=== PATIENT | male | born 1970 | race American Indian/Alaskan Native ===

== ENCOUNTER 2019-10-07 19:22 | Emergency (ER) | payer OTHER ==
[2019-10-07] MEDS ORDERED: ASPIRIN 325 MG TAB PO ONE (19:33)
[2019-10-07 20:02] LABS: Hematocrit 42.4 % (35.5-45.6); Hemoglobin 13.8 gm/dl (11.8-15.2); Mean Corpuscular HGB Conc 33 % (32-34); Mean Corpuscular Volume 89 fl (84-94); Platelet Count 207 K/mm3 (140-440); Red Blood Count 4.77 M/mm3 (3.65-5.03); Red Cell Distribution Width 13.7 % (13.2-15.2)
--- NOTE | 2019-10-07 20:14 | XRay Report ---
CHEST 2 VIEWS INDICATION: MAIN: Chest Pain; Pt states that he has has difficulty taking a deep breath, difficulty sleeping, and pain to the left side of chest/ribs. COMPARISON: None. FINDINGS: Support devices: None. Heart: Within normal limits. Lungs/Pleura: No acute air space or interstitial disease. No significant pleural effusion. IMPRESSION: No acute findings. Signer Name: Louis Curran MD Signed: 10/07/2019 8:10 PM Workstation Name: [id number]
[2019-10-07 20:17] LABS: BUN/Creatinine Ratio 8; Blood Urea Nitrogen 9 mg/dL (9-20); Calcium 9.4 mg/dL (8.4-10.2); Hemolysis Index 12
--- NOTE | 2019-10-07 20:33 | Emergency Department Report ---
ED Chest Pain HPI - General Chief Complaint: Chest Pain Stated Complaint: SOB/TROUBLE SLEEPING PUI?: No Time Seen by Provider: 10/07/19 20:15 Source: patient Mode of arrival: Ambulatory Limitations: No Limitations - History of Present Illness Initial Comments: Patient is a 49-year-old male that presents emergency room with complaints of chest pain x1 day. Patient states he is also having difficulties breathing. Patient states the chest pain is worse with palpation and movement and better with rest. Patient states the chest pain is moderate. Patient states that the chest pain had him so worried he could not sleep last night. Patient states that he has anxiety issues. Patient states he has high cholesterol but is con trolled medication. Patient denies history of diabetes and hypertension. Patient does not smoke. Patient states his shortness of breath is unchanged by exertion or rest. Patient denies fever and chills. Patient denies recent travel. Patient denies recent international travel. Patient denies exposure to the novel coronavirus. Patient denies sick contacts. Patient denies fever and chills. Patient denies cough. Patient denies diarrhea. Patient denies coming in contact with anybody with symptoms of the novel coronavirus. MD Complaint: chest pain -: Sudden Onset: during rest Pain Location: left chest Severity: moderate Severity scale (0 -10): 6 Quality: heaviness, pressure Consistency: constant Improves With: rest Worsens With: palpation, movement re: dyspnea. denies: nausea, vomting, diaphoresis, sense of impending doom Other Symptoms: denies: cough, fever, syncope, rash, acid taste in mouth, leg swelling, palpitations, burping Treatments Prior to Arrival: none Aspirin use within the Past 7 Days: (0) No - Related Data Allergies Allergy/AdvReac Type Severity Reaction Status Date / Time No Known Allergies Allergy Unverified 10/07/19 19:33 Heart Score - HEART Score History: Slightly suspicious EKG: Normal Age: 45-65 Risk factors: No known risk factors Troponin: < normal limit HEART Score: 1 ED Review of Systems ROS: Stated complaint: SOB/TROUBLE SLEEPING Other details as noted in HPI Constitutional: denies: chills, fever Eyes: denies: eye pain, eye discharge, vision change ENT: denies: ear pain, throat pain Respiratory: shortness of breath. denies: cough, wheezing Cardiovascular: chest pain. denies: palpitations Endocrine: no symptoms reported Gastrointestinal: denies: abdominal pain, nausea, diarrhea Genitourinary: denies: urgency, dysuria Musculoskeletal: denies: back pain, joint swelling, arthralgia Skin: denies: rash, lesions Neurological: denies: headache, weakness, paresthesias Psychiatric: denies: anxiety, depression Hematological/Lymphatic: denies: easy bleeding, easy bruising ED Past Medical Hx - Past Medical History Previous Medical History?: Yes Hx Psychiatric Treatment: Yes (PTSD) Additional medical history: high cholesterol - Surgical History Past Surgical History?: Yes Additional Surgical History: anal fistula - Family History Family history: no significant - Social History Smoking Status: Never Smoker Substance Use Type: Alcohol, Marijuana ED Physical Exam - General Limitations: No Limitations General appearance: alert, in no apparent distress - Head Head exam: Present: atraumatic, normocephalic - Eye Eye exam: Present: normal appearance - ENT ENT exam: Present: mucous membranes moist - Neck Neck exam: Present: normal inspection - Respiratory Respiratory exam: Present: normal lung sounds bilaterally, chest wall tenderness (ttp to left lower rib, palpation reproduces symptoms. ). Absent: respiratory distress, wheezes, rales, accessory muscle use, decreased breath sounds - Cardiovascular Cardiovascular Exam: Present: regular rate, normal rhythm. Absent: systolic murmur, diastolic murmur, rubs, gallop - GI/Abdominal GI/Abdominal exam: Present: soft, normal bowel sounds - Rectal Rectal exam: Present: deferred - Extremities Exam Extremities exam: Present: normal inspection - Back Exam Back exam: Present: normal inspection - Neurological Exam Neurological exam: Present: alert, oriented X3 - Psychiatric Psychiatric exam: Present: normal affect, normal mood - Skin Skin exam: Present: warm, dry, intact, normal color. Absent: rash ED Course Vital Signs 10/07/19 19:30 Temperature 98.0 F Pulse Rate 67 Respiratory 18 Rate Blood Pressure 140/85 O2 Sat by Pulse 100 Oximetry - Reevaluation(s) Reevaluation #1: I discussed all results and clinical findings with patient. I discussed plan of care with patient. Patient agrees with plan of care. Patient is stable for discharge. Patient will be discharged home. Patient given discharge instructions. Patient voiced understanding of discharge instructions. 10/07/19 20:33 DEIDRA score - Deidra Score Age > 65: (0) No Aspirin use within the Past 7 Days: (0) No 3 or more CAD Risk Factors: (0) No 2 or more Angina events in past 24 hrs: (0) No Known CAD with more than 50% Stenosis: (0) No Elevated Cardiac Markers: (0) No ST Deviation Greater than 0.5mm: (0) No DEIDRA Score: 0 ED Medical Decision Making - Lab Data Result diagrams: 10/07/19 19:46 10/07/19 19:46 - EKG Data -: EKG Interpreted by Me EKG shows normal: sinus rhythm, intervals, QRS complexes, ST-T waves Rate: normal - Radiology Data Radiology results: report reviewed, image reviewed CHEST 2 VIEWS INDICATION: MAIN: Chest Pain; Pt states that he has has difficulty taking a deep breath, difficulty sleeping, and pain to the left side of chest/ribs. COMPARISON: None. FINDINGS: Support devices: None. Heart: Within normal limits. Lungs/Pleura: No acute air space or interstitial disease. No significant pleural effusion. IMPRESSION: No acute findings. - Medical Decision Making Patient is a 49-year-old male who presents emergency room with left-sided chest pain. Patient's chest pain is reproducible on palpation. Patient chest pain is low risk. Patient referred to our cardiology team for outpatient work-up. Patient does not require admission. Patient chest pains been going on longer than 24 hours and patient's initial troponin negative. Patient's EKG does not show a STEMI. Patient chest x-ray is negative. [facility] Patient stable for discharge. Patient discharged home. - Differential Diagnosis Chest pain, chest wall pain. Costochondritis. Anxiety Critical care attestation.: If time is entered above; I have spent that time in minutes in the direct care of this critically ill patient, excluding procedure time. ED Disposition Clinical Impression: Costochondritis, acute Chest pain Qualifiers: Chest pain type: unspecified Qualified Code(s): R07.9 - Chest pain, unspecified Disposition: DC-01 TO HOME OR SELFCARE Is pt being admited?: No Does the pt Need Aspirin: No Condition: Stable Instructions: Chest Pain (ED), Costochondritis (ED) Additional Instructions: Patient to follow-up with primary care in 2 to 3 days. Patient to follow-up with cardiology in 2 to 3 days. Patient to rest. Patient to increase water. Patient to avoid strenuous exercise or heavy lifting until cleared by cardiology. Patient to take Tylenol or ibuprofen as needed for pain. Patient to return to the ER if condition worsens, changes or new symptoms arise. Referrals: TOR AGRAWAL MD [Staff Physician] - 2-3 Days Time of Disposition: 20:44
[2019-10-07 20:58] LABS: RBC Morphology Normal; Total Cells Counted 100
[2019-10-07 21:02] VITALS: BP 137/80
== END 2019-10-07 21:01 | disposition home or self-care (01) ==
LOC: ED 19:22
DX: M94.0 Chondrocostal junction syndrome [Tietze] (principal); E78.00 Pure hypercholesterolemia, unspecified; F12.10 Cannabis abuse, uncomplicated; F43.10 Post-traumatic stress disorder, unspecified
CPT/HCPCS: 36415; 71046; 80048; 84484; 85007; 85025; 93005

== ENCOUNTER 2019-11-04 13:20 | Emergency (ER) | payer OTHER ==
[2019-11-04 13:47] VITALS: BP 139/83
[2019-11-04 14:26] LABS: Hematocrit 43.8 % (35.5-45.6); Mean Corpuscular HGB Conc 32 % (32-34); Mean Corpuscular Volume 88 fl (84-94); Platelet Count 235 K/mm3 (140-440); Red Blood Count 4.97 M/mm3 (3.65-5.03); Red Cell Distribution Width 14.4 % (13.2-15.2)
[2019-11-04] MEDS ORDERED: SODIUM CHLORIDE 0.9% 1000 ML 1,000 ML IV ONE (14:51)
[2019-11-04] MEDS ORDERED: KETOROLAC 30 MG/1 ML INJ IV ONE (14:51)
[2019-11-04] MEDS ORDERED: ONDANSETRON 4 MG/2 ML INJ IV ONE (14:51)
[2019-11-04] MEDS ORDERED: MORPHINE 4 MG/1 ML INJ IV ONE (14:51)
[2019-11-04 15:01] LABS: Alanine Aminotransferase 57 units/L (7-56); Albumin 4.3 g/dL (3.9-5); BUN/Creatinine Ratio 9; Blood Urea Nitrogen 12 mg/dL (9-20); Calcium 9.6 mg/dL (8.4-10.2); Hemolysis Index 11
--- NOTE | 2019-11-04 15:06 | Cat Scan Report ---
CT OF THE ABDOMEN AND PELVIS WITHOUT CONTRAST INDICATION / CLINICAL INFORMATION: Right flank pain x 6 hours; hx of nephrolithiasis. TECHNIQUE: All CT scans at this location are performed using CT dose reduction for ALARA by means of automated e xposure control. COMPARISON: None available. FINDINGS: ABDOMEN: There is mild right pelvocaliectasis, ureterectasis and perinephric soft tissue stranding. T he left kidney is normal. The liver, spleen, gallbladder, bile ducts, pancreas, adrenal glands and adalberto wel demonstrate no significant abnormality. No adenopathy is seen. There are a couple of solid subple ural nodules in the right lower lobe, the largest of which measures 3 mm. PELVIS: The right ureter is mildly dilated to approximately half-way between the inferior SI joint and ureterovesical junction. There is a 3 mm calculus at that site, best seen on axial image #151. The d istal left ureter and urinary bladder are normal. The prostate gland is normal in size. There are sma ll fat-containing inguinal hernias bilaterally without complication. A normal appendix is present and there is no evidence of diverticulitis. There is bilateral spondylolysis at L5 with minimal anteroli sthesis of L5 on S1. There are mild degenerative changes at the lumbosacral junction. IMPRESSION: 1. 3 mm calculus in the distal right ureter several centimeters above the ureterovesical junction is causing mild hydronephrosis. 2. Bilateral spondylolysis at L5 with minimal anterolisthesis of L5 on S1 and mild associated spondyl osis. 3. A couple of tiny incidental pulmonary nodules in the right lower lobe. No routine follow-up is rec ommended. INCIDENTAL PULMONARY NODULE RECOMMENDATION RECOMMENDATION: Solid Nodule size <6 mm -- Single or Multiple - Low Risk Patient: No routine follow-up - High Risk Patient: Optional CT at 12 months Note These recommendations do not apply to lung cancer screening, patients with immunosuppression, o r patients with known primary cancer. Note Newly detected indeterminate nodule in persons 35 years of age or older. Persons under the age of 35 should not receive follow-up unless there is a known primary cancer. Note A Perifissural Nodule is a fissure-attached/subpleural, homogeneous, solid nodule that had smoo th margins and an oval, lentiform, or triangular shape. They represent about 20% of nodules detected in lung cancer screening, are invariably benign, and do not require follow-up. Nodules 10 mm or large r (or those with suspicious features) will continue to be managed based on the size criteria. Low Risk Patient -- minimal or absent history of smoking and of other known risk factors. High Risk Patient -- history of smoking or of other known risk factors. Nodule dimensions are average of long and short axes, rounded to the nearest millimeter. Based on 2017 Fleischner Society Guidelines found in Radiology 2017 284:228-243. https://doi.[email or web address]/radiol.5467010362 https://www.ncbi.nlm.nih.gov/pmc/articles/JVT4866998/ Signer Name: Stephen Mejía MD Signed: 11/04/2019 3:01 PM Workstation Name: [id number]
[2019-11-04] MEDS ORDERED: METOCLOPRAMIDE 10 MG/2 ML INJ IV ONE (15:55)
[2019-11-04] MEDS ORDERED: HYDROmorphone 1 MG/1 ML INJ IV ONE (15:55)
--- NOTE | 2019-11-04 15:56 | Emergency Department Report ---
ED General Adult HPI - General Chief complaint: Abdominal Pain Stated complaint: BACK PAIN Time Seen by Provider: 11/04/19 14:48 Source: patient Mode of arrival: Ambulatory Limitations: No Limitations - History of Present Illness Initial comments: Patient is a 49-year-old male presents emergency room complaints of right flank pain that began last night. He has associated nausea and one episode of vomiting. He states that it is a intermittent sharp stabbing pain. He denies any diarrhea, fever, dysuria, hematuria, dark urine. He states that he has had this once in the past when he had a kidney stone approximately 15 years ago. He states that he was able to pass the stone on his own and did not have to have surgical intervention. He has a past medical history of PTSD. He denies any allergies to medications. Severity scale (0 -10): 10 - Related Data Previous Rx's Medication Instructions Recorded Last Taken Type Tamsulosin [Flomax] 0.4 mg PO QDAY #5 cap 11/04/19 Unknown Rx traMADoL [Ultram 50 MG tab] 50 mg PO Q6HR PRN #7 tablet 11/04/19 Unknown Rx Allergies Allergy/AdvReac Type Severity Reaction Status Date / Time No Known Allergies Allergy Verified 10/07/19 21:09 ED Review of Systems ROS: Stated complaint: BACK PAIN Other details as noted in HPI Comment: All other systems reviewed and negative ED Past Medical Hx - Past Medical History Previous Medical History?: Yes Hx Kidney Stones: Yes Hx Psychiatric Treatment: Yes (PTSD) Additional medical history: high cholesterol - Surgical History Past Surgical History?: Yes Additional Surgical History: anal fistula - Social History Smoking Status: Never Smoker Substance Use Type: Marijuana - Medications Home Medications: Home Medications Medication Instructions Recorded Confirmed Last Taken Type Tamsulosin [Flomax] 0.4 mg PO QDAY #5 cap 11/04/19 Unknown Rx traMADoL [Ultram 50 MG tab] 50 mg PO Q6HR PRN #7 tablet 11/04/19 Unknown Rx ED Physical Exam - General Limitations: No Limitations General appearance: alert, in no apparent distress - Head Head exam: Present: atraumatic, normocephalic - Eye Eye exam: Present: normal appearance - ENT ENT exam: Present: mucous membranes moist - Respiratory Respiratory exam: Present: normal lung sounds bilaterally. Absent: respiratory distress, wheezes, rales, rhonchi, stridor, chest wall tenderness, accessory muscle use, decreased breath sounds, prolonged expiratory - Cardiovascular Cardiovascular Exam: Present: regular rate, normal rhythm, normal heart sounds. Absent: systolic murmur, diastolic murmur, rubs, gallop - GI/Abdominal GI/Abdominal exam: Present: soft, normal bowel sounds. Absent: distended, tenderness, guarding, rebound, rigid - Back Exam Back exam: Present: CVA tenderness (R). Absent: CVA tenderness (L) - Neurological Exam Neurological exam: Present: alert, oriented X3 - Psychiatric Psychiatric exam: Present: normal affect, normal mood - Skin Skin exam: Present: warm, dry, intact ED Course Vital Signs 11/04/19 13:47 Temperature 98 F Pulse Rate 57 L Respiratory 20 Rate Blood Pressure 139/83 [Right] O2 Sat by Pulse 98 Oximetry ED Medical Decision Making - Lab Data Result diagrams: 11/04/19 13:55 11/04/19 13:55 Lab Results 11/04/19 11/04/19 Range/Units 13:55 13:55 WBC 6.2 (4.5-11.0) K/mm3 RBC 4.97 (3.65-5.03) M/mm3 Hgb 14.0 (11.8-15.2) gm/dl Hct 43.8 (35.5-45.6) % MCV 88 (84-94) fl MCH 28 (28-32) pg MCHC 32 (32-34) % RDW 14.4 (13.2-15.2) % Plt Count 235 (140-440) K/mm3 Lymph % (Auto) It Quality Analyst Add Manual Diff Complete Total Counted 100 Seg Neuts % (Manual) 31.0 L (40.0-70.0) % Band Neutrophils % 0 % Lymphocytes % (Manual) 58.0 H (13.4-35.0) % Reactive Lymphs % (Man) 0 % Monocytes % (Manual) 10.0 H (0.0-7.3) % Eosinophils % (Manual) 0 (0.0-4.3) % Basophils % (Manual) 1.0 (0.0-1.8) % Metamyelocytes % 0 % Myelocytes % 0 % Promyelocytes % 0 % Blast Cells % 0 % Nucleated RBC % Not Reportable Seg Neutrophils # Man 1.9 (1.8-7.7) K/mm3 Band Neutrophils # 0.0 K/mm3 Lymphocytes # (Manual) 3.6 (1.2-5.4) K/mm3 Abs React Lymphs (Man) 0.0 K/mm3 Monocytes # (Manual) 0.6 (0.0-0.8) K/mm3 Eosinophils # (Manual) 0.0 (0.0-0.4) K/mm3 Basophils # (Manual) 0.1 (0.0-0.1) K/mm3 Metamyelocytes # 0.0 K/mm3 Myelocytes # 0.0 K/mm3 Promyelocytes # 0.0 K/mm3 Blast Cells # 0.0 K/mm3 WBC Morphology Not Reportable Hypersegmented Neuts Not Reportable Hyposegmented Neuts Not Reportable Hypogranular Neuts Not Reportable Smudge Cells Not Reportable Toxic Granulation Not Reportable Toxic Vacuolation Not Reportable Dohle Bodies Not Reportable Pelger-Huet Anomaly Not Reportable Katy Rods Not Reportable Platelet Estimate Consistent w auto Clumped Platelets Not Reportable Plt Clumps, EDTA Not Reportable Large Platelets Not Reportable Giant Platelets Not Reportable Platelet Satelliting Not Reportable Plt Morphology Comment Not Reportable RBC Morphology Not Reportable Dimorphic RBCs Not Reportable Polychromasia Not Reportable Hypochromasia Not Reportable Poikilocytosis Not Reportable Anisocytosis Not Reportable Microcytosis Not Reportable Macrocytosis Not Reportable Spherocytes Not Reportable Pappenheimer Bodies Not Reportable Sickle Cells Not Reportable Target Cells Not Reportable Tear Drop Cells Not Reportable Ovalocytes Few Stomatocytes Few Helmet Cells Not Reportable Garcia-[place] Bodies Not Reportable Madison Rings Not Reportable Castro Cells Not Reportable Bite Cells Not Reportable Crenated Cell Not Reportable Elliptocytes Not Reportable Acanthocytes (Spur) Not Reportable Rouleaux Not Reportable Hemoglobin C Crystals Not Reportable Schistocytes Not Reportable Malaria parasites Not Reportable Thomas Bodies Not Reportable Hem Pathologist Commnt No Sodium 143 (137-145) mmol/L Potassium 4.5 (3.6-5.0) mmol/L Chloride 102.7 (98-107) mmol/L Carbon Dioxide 26 (22-30) mmol/L Anion Gap 19 mmol/L BUN 12 (9-20) mg/dL Creatinine 1.4 (0.8-1.5) mg/dL Estimated GFR > 60 ml/min BUN/Creatinine Ratio 9 % Glucose 121 H (75-100) mg/dL Calcium 9.6 (8.4-10.2) mg/dL Total Bilirubin 0.20 (0.1-1.2) mg/dL AST 34 (5-40) units/L ALT 57 H (7-56) units/L Alkaline Phosphatase 82 (35-129) units/L Total Protein 7.7 (6.3-8.2) g/dL Albumin 4.3 (3.9-5) g/dL Albumin/Globulin Ratio 1.3 % - Radiology Data Radiology results: report reviewed CT OF THE ABDOMEN AND PELVIS WITHOUT CONTRAST INDICATION / CLINICAL INFORMATION: Right flank pain x 6 hours; hx of nephrolithiasis. TECHNIQUE: All CT scans at this location are performed using CT dose reduction for ALARA by means of automated exposure control. COMPARISON: None available. FINDINGS: ABDOMEN: There is mild right pelvocaliectasis, ureterectasis and perinephric soft tissue stranding. The left kidney is normal. The liver, spleen, gallbladder, bile ducts, pancreas, adrenal glands and bowel demonstrate no significant abnormality. No adenopathy is seen. There are a couple of solid subpleural nodules in the right lower lobe, the largest of which measures 3 mm. PELVIS: The right ureter is mildly dilated to approximately detention between the inferior SI joint and ureterovesical junction. There is a 3 mm calculus at that site, best seen on axial image #151. The distal left ureter and urinary bladder are normal. The prostate gland is normal in size. There are small fat-containing inguinal hernias bilaterally without complication. A normal appendix is present and there is no evidence of diverticulitis. There is bilateral spondylolysis at L5 with minimal anterolisthesis of L5 on S1. There are mild degenerative changes at the lumbosacral junction. IMPRESSION: 1. 3 mm calculus in the distal right ureter several centimeters above the ureterovesical junction is causing mild hydronephrosis. 2. Bilateral spondylolysis at L5 with minimal anterolisthesis of L5 on S1 and mild associated spondylosis. 3. A couple of tiny incidental pulmonary nodules in the right lower lobe. No routine follow-up is recommended. INCIDENTAL PULMONARY NODULE RECOMMENDATION RECOMMENDATION: Solid Nodule size <6 mm -- Single or Multiple - Low Risk Patient: No routine follow-up - High Risk Patient: Optional CT at 12 months Note These recommendations do not apply to lung cancer screening, patients with immunosuppression, or patients with known primary cancer. Note Newly detected indeterminate nodule in persons 35 years of age or older. Persons under the age of 35 should not receive follow-up unless there is a known primary cancer. Note A Perifissural Nodule is a fissure-attached/subpleural, homogeneous, solid nodule that had smooth margins and an oval, lentiform, or triangular shape. They represent about 20% of nodules dete cted in lung cancer screening, are invariably benign, and do not require follow-up. Nodules 10 mm or larger (or those with suspicious features) will continue to be managed based on the size criteria. Low Risk Patient -- minimal or absent history of smoking and of other known risk factors. High Risk Patient -- history of smoking or of other known risk factors. Nodule dimensions are average of long and short axes, rounded to the nearest millimeter. Based on 2017 Fleischner Society Guidelines found in Radiology 2017 284:228-243. https://[email or web address] https://www.ncbi.nlm.nih.gov/pmc/articles/MQN0641061/ Signer Name: Stephen Mejía MD Signed: 11/04/2019 3:01 PM Workstation Name: [id number] Transcribed By: RT Dictated By: Stephen Mejía MD Electronically Authenticated By: Stephen Mejía MD Signed Date/Time: 11/04/19 1501 DD/ 1454 TD/TT: - Medical Decision Making Patient is a 49-year-old male presents emergency room complaints of right flank pain that began last night. He has associated nausea and one episode of vomiting. He states that it is a intermittent sharp stabbing pain. He denies any diarrhea, fever, dysuria, hematuria, dark urine. He states that he has had this once in the past when he had a kidney stone approximately 15 years ago. He states that he was able to pass the stone on his own and did not have to have surgical intervention. He has a past medical history of PTSD. He denies any allergies to medications. Vitals are stable. On exam patient has right CVA tenderness to percussion. No leukocytosis, normal kidney function. CT abdomen pelvis without contrast shows: 1. 3 mm calculus in the distal right ureter several centimeters above the ureterovesical junction is causing mild hydronephrosis. 2. Bilateral spondylolysis at L5 with minimal anterolisthesis of L5 on S1 and mild associated spondylosis. 3. A couple of tiny incidental pulmonary nodules in the right lower lobe. No routine follow-up is recommended. Patient given pain medication and fluids and symptoms improved. Discussed all results with patient and answered questions. Patient given prescription for t ramadol and Flomax. Advised patient Please take medication as prescribed. Increase your water intake over the next several days. Follow-up with a urologist. Follow-up with your primary care doctor. Return to emergency room for any new or worsening symptoms. - Differential Diagnosis Nephrolithiasis, renal obstruction, SUZIE, pyelonephritis, DDD, muscle strain Critical care attestation.: If time is entered above; I have spent that time in minutes in the direct care of this critically ill patient, excluding procedure time. ED Disposition Clinical Impression: Nephrolithiasis, Flank pain Nausea & vomiting Qualifiers: Vomiting type: unspecified Vomiting Intractability: non-intractable Qualified Code(s): R11.2 - Nausea with vomiting, unspecified Disposition: DC- TO HOME OR SELFCARE Is pt being admited?: No Does the pt Need Aspirin: No Condition: Stable Instructions: Kidney Stones (ED) Additional Instructions: Please take medication as prescribed. Increase your water intake over the next several days. Follow-up with a urologist. Follow-up with your primary care doctor. Return to emergency room for any new or worsening symptoms. Prescriptions: Tamsulosin [Flomax] 0.4 mg PO QDAY #5 cap traMADoL [Ultram 50 MG tab] 50 mg PO Q6HR PRN #7 tablet PRN Reason: Pain , Severe (7-10) Referrals: CASSIUS JACK MD [Staff Physician] - 3-5 Days your, primary care doctor [Other] - 3-5 Days Time of Disposition: 16:00 Print Language: [place]
[2019-11-04 16:50] LABS: Eosinophils % (Manual) 0 % (0.0-4.3); Total Cells Counted 100
[2019-11-04 16:51] LABS: Ovalocytes Few; Platelet Estimate Consistent w Auto; Stomatocytes Few
== END 2019-11-04 16:45 | disposition home or self-care (01) ==
LOC: ED 13:20
DX: N20.0 Calculus of kidney (principal); R11.2 Nausea with vomiting, unspecified; F43.10 Post-traumatic stress disorder, unspecified; E78.00 Pure hypercholesterolemia, unspecified; F12.10 Cannabis abuse, uncomplicated; Z87.442 Personal history of urinary calculi; Z98.890 Other specified postprocedural states; Z79.899 Other long term (current) drug therapy
CPT/HCPCS: 36415; 74176; 80053; 85007; 85025; 96361; 96374; 96375; 99284; J1170; J1885; J2270; J2405; J2765; J7030

== ENCOUNTER 2020-01-29 14:33 | Emergency (ER) | payer SELFPAY ==
[2020-01-29 15:12] VITALS: BP 129/81
--- NOTE | 2020-01-29 17:40 | Event Note ---
ED Screening Note Date of service: 01/29/20 Time: 17:38 ED Screening Note: 49-year-old male who presents to the ED complaining of blurry vision /flank pain times a couple days. Patient states he went to the PA and they told him to come to the ED for evaluation. Patient states he is also been having some tingling sensation to his hands and feet that has been getting worse. Patient also states that he tested positive for cocaine in December 10 and sometimes to get short of breath. This initial assessment/diagnostic orders/clinical plan/treatment(s) is/are subject to change based on patients health status, clinical progression and re- assessment by fellow clinical providers in the ED. Further treatment and workup at subsequent clinical providers discretion. Patient/guardian urged not to elope from the ED as their condition may be serious if not clinically assessed and managed. Initial orders include: Chest x-ray, CBC CMP, urinalysis ordered.
--- NOTE | 2020-01-29 18:19 | XRay Report ---
CHEST 2 VIEWS INDICATION / CLINICAL INFORMATION: care. COMPARISON: 01/06/2020 FINDINGS: SUPPORT DEVICES: None. HEART / MEDIASTINUM: No significant abnormality. LUNGS / PLEURA: No significant pulmonary or pleural abnormality. No pneumothorax. ADDITIONAL FINDINGS: No significant additional findings. IMPRESSION: 1. No acute findings. Signer Name: Stephen Ferreira MD Signed: 01/29/2020 6:15 PM Workstation Name: [id number]
[2020-01-29 19:54] LABS: Hematocrit 40.3 % (35.5-45.6); Mean Corpuscular HGB Conc 35 % (32-34); Mean Corpuscular Volume 87 fl (84-94); Platelet Count 247 K/mm3 (140-440); Red Blood Count 4.62 M/mm3 (3.65-5.03)
[2020-01-29 20:11] LABS: Alanine Aminotransferase 84 units/L (7-56); Albumin 4.4 g/dL (3.9-5); BUN/Creatinine Ratio 7; Blood Urea Nitrogen 10 mg/dL (9-20); Calcium 9.6 mg/dL (8.4-10.2); Hemolysis Index 10
[2020-01-29 20:13] LABS: Bilirubin,Urine NEG (Negative); Blood,Urine NEG (Negative); Color,Urine Yellow (Yellow); Mucus,Urine FEW /HPF; Protein,Urine <15 mg/dL mg/dL (Negative); WBC,Urine < 1.0 /HPF (0.0-6.0)
[2020-01-29 21:43] LABS: RBC Morphology Normal; Total Cells Counted 100
--- NOTE | 2020-01-29 22:20 | Emergency Department Report ---
ED Rash HPI - HPI Chief Complaint: Skin Rash Stated Complaint: TINGLY AND BURNING IN FEET Time Seen by Provider: 01/29/20 21:57 Rash Symptoms: No Itching, No Facial Swelling, No Tongue/Oral Swelling, No Breathing Difficulties, No Choking Sensation, No Wheezing/Dyspnea, No Peeling, No Blistering, No Fever, No Lightheaded, No Malaise, No Myalgias Severity: mild Other History: bilat forearm rash, bilat foot tingling x 1 month follow by pcp for same, states post covid, there is no sob , no cough, no fever , no chills, no n/v, no diarrhea, no exacerbating or relieving factors. pt is currently t olerating po intake without symptoms. ED Review of Systems ROS: Stated complaint: TINGLY AND BURNING IN FEET Other details as noted in HPI Constitutional: denies: chills, fever Eyes: denies: eye pain, eye discharge, vision change ENT: denies: ear pain, throat pain Respiratory: denies: cough, shortness of breath, wheezing Cardiovascular: denies: chest pain, palpitations Endocrine: no symptoms reported Gastrointestinal: denies: abdominal pain, nausea, diarrhea Genitourinary: denies: urgency, dysuria Musculoskeletal: denies: back pain, joint swelling, arthralgia Skin: rash, pruritus Neurological: denies: headache, weakness, paresthesias Psychiatric: denies: anxiety, depression Hematological/Lymphatic: denies: easy bleeding, easy bruising ED Past Medical Hx - Past Medical History Previous Medical History?: Yes Hx GERD: Yes Hx Kidney Stones: Yes Hx Psychiatric Treatment: Yes (PTSD) Additional medical history: high cholesterol - Surgical History Past Surgical History?: Yes Additional Surgical History: anal fistula - Social History Smoking Status: Never Smoker Substance Use Type: None - Medications Home Medications: Home Medications Medication Instructions Recorded Confirmed Last Taken Type Tamsulosin [Flomax] 0.4 mg PO QDAY #5 cap 11/04/19 Unknown Rx traMADoL [Ultram 50 MG tab] 50 mg PO Q6HR PRN #7 tablet 11/04/19 Unknown Rx Albuterol Sulfate [Proventil Hfa] 2 puff IH Q4HR PRN #1 hfa.aer.ad 12/13/19 Unknown Rx traMADoL [Ultram] 50 mg PO Q6HR PRN #7 tablet 12/13/19 Unknown Rx traMADoL [Ultram 50 MG tab] 50 mg PO Q6HR PRN #14 tablet 01/06/20 Unknown Rx Naproxen 500 mg PO BID PRN #30 tablet 01/29/20 Unknown Rx Rash Exam - Exam General: Vital signs noted. No distress. Alert and acting appropriately. HEENT: No Periorbital Edema, No Conjuctival Injection, No Chemosis, No Perioral Edema, No Tongue Edema, No Uvular Edema, No Compromised Airway, No Drooling Lungs: Yes Good Air Exchange (Normal Breath Sounds), No Wheezes, No Ronchi, No Stridor, No Cough, No Labored Respirations, No Retractions, No Use of Accessory Muscles, No Other Abnormal Lung Sounds Heart: Yes Regular, No Murmur Skin: No Urticarial Rash, No Maculopapular Rash, No Morbilliform rash, No Bulla(e), No Excoriations, No Weeping, No Tenderness, No Erythema, No Edema, No Encrustations Other: Positive: Abdomen Normal, Neurologic Normal, Musculoskeletal Normal ED Course Vital Signs 01/29/20 15:06 Temperature 98.0 F Pulse Rate 81 Respiratory 20 Rate Blood Pressure 129/81 O2 Sat by Pulse 96 Oximetry ED Medical Decision Making - Lab Data Result diagrams: 01/29/20 19:29 01/29/20 19:29 Labs 01/29/20 01/29/20 01/29/20 15:30 19:29 19:29 WBC 7.1 RBC 4.62 Hgb 14.0 Hct 40.3 MCV 87 MCH 30 MCHC 35 H RDW 14.0 Plt Count 247 Lymph % (Auto) General Labor Add Manual Diff Complete Total Counted 100 Seg Neutrophils % General Labor Seg Neuts % (Manual) 34.0 L Band Neutrophils % 0 Lymphocytes % (Manual) 51.0 H Reactive Lymphs % (Man) 0 Monocytes % (Manual) 12.0 H Eosinophils % (Manual) 2.0 Basophils % (Manual) 1.0 Metamyelocytes % 0 Myelocytes % 0 Promyelocytes % 0 Blast Cells % 0 Nucleated RBC % Not Reportable Seg Neutrophils # Man 2.4 Band Neutrophils # 0.0 Lymphocytes # (Manual) 3.6 Abs React Lymphs (Man) 0.0 Monocytes # (Manual) 0.9 H Eosinophils # (Manual) 0.1 Basophils # (Manual) 0.1 Metamyelocytes # 0.0 Myelocytes # 0.0 Promyelocytes # 0.0 Blast Cells # 0.0 WBC Morphology Not Reportable Hypersegmented Neuts Not Reportable Hyposegmented Neuts Not Reportable Hypogranular Neuts Not Reportable Smudge Cells Not Reportable Toxic Granulation Not Reportable Toxic Vacuolation Not Reportable Dohle Bodies Not Reportable Pelger-Huet Anomaly Not Reportable Katy Rods Not Reportable Platelet Estimate Not Reportable Clumped Platelets Not Reportable Plt Clumps, EDTA Not Reportable Large Platelets Not Reportable Giant Platelets Not Reportable Platelet Satelliting Not Reportable Plt Morphology Comment Not Reportable RBC Morphology Normal Dimorphic RBCs Not Reportable Polychromasia Not Reportable Hypochromasia Not Reportable Poikilocytosis Not Reportable Anisocytosis Not Reportable Microcytosis Not Reportable Macrocytosis Not Reportable Spherocytes Not Reportable Pappenheimer Bodies Not Reportable Sickle Cells Not Reportable Target Cells Not Reportable Tear Drop Cells Not Reportable Ovalocytes Not Reportable Helmet Cells Not Reportable Garcia[place] Bodies Not Reportable [place] Not Reportable Tiona Cells Not Reportable Bite Cells Not Reportable Crenated Cell Not Reportable Elliptocytes Not Reportable Acanthocytes (Spur) Not Reportable Rouleaux Not Reportable Hemoglobin C Crystals Not Reportable Schistocytes Not Reportable Malaria parasites Not Reportable Thomas Bodies Not Reportable Hem Pathologist Commnt No Sodium 141 Potassium 4.2 Chloride 100.6 Carbon Dioxide 26 Anion Gap 19 BUN 10 Creatinine 1.4 H Estimated GFR > 60 BUN/Creatinine Ratio 7 Glucose 83 POC Glucose 76 Calcium 9.6 Total Bilirubin 0.30 AST 46 H ALT 84 H Alkaline Phosphatase 105 Total Protein 7.1 Albumin 4.4 Albumin/Globulin Ratio 1.6 Urine Color Urine Turbidity Urine pH Ur Specific [place] Urine Protein Urine Glucose (UA) Urine Ketones Urine Blood Urine Nitrite Urine Bilirubin Urine Urobilinogen Ur Leukocyte Esterase Urine WBC (Auto) Urine RBC (Auto) Urine Mucus 01/29/20 Unknown WBC RBC Hgb Hct MCV MCH MCHC RDW Plt Count Lymph % (Auto) Add Manual Diff Total Counted Seg Neutrophils % Seg Neuts % (Manual) Band Neutrophils % Lymphocytes % (Manual) Reactive Lymphs % (Man) Monocytes % (Manual) Eosinophils % (Manual) Basophils % (Manual) Metamyelocytes % Myelocytes % Promyelocytes % Blast Cells % Nucleated RBC % Seg Neutrophils # Man Band Neutrophils # Lymphocytes # (Manual) Abs React Lymphs (Man) Monocytes # (Manual) Eosinophils # (Manual) Basophils # (Manual) Metamyelocytes # Myelocytes # Promyelocytes # Blast Cells # WBC Morphology Hypersegmented Neuts Hyposegmented Neuts Hypogranular Neuts Smudge Cells Toxic Granulation Toxic Vacuolation Dohle Bodies Pelger-Huet Anomaly Katy Rods Platelet Estimate Clumped Platelets Plt Clumps, EDTA Large Platelets Giant Platelets Platelet Satelliting Plt Morphology Comment RBC Morphology Dimorphic RBCs Polychromasia Hypochromasia Poikilocytosis Anisocytosis Microcytosis Macrocytosis Spherocytes Pappenheimer Bodies Sickle Cells Target Cells Tear Drop Cells Ovalocytes Helmet Cells Garcia[place] Bodies [place] Cells Bite Cells Crenated Cell Elliptocytes Acanthocytes (Spur) Rouleaux Hemoglobin C Crystals Schistocytes Malaria parasites Thomas Bodies Hem Pathologist Commnt Sodium Potassium Chloride Carbon Dioxide Anion Gap BUN Creatinine Estimated GFR BUN/Creatinine Ratio Glucose POC Glucose Calcium Total Bilirubin AST ALT Alkaline Phosphatase Total Protein Albumin Albumin/Globulin Ratio Urine Color Yellow Urine Turbidity Clear Urine pH 6.0 Ur Specific [place] 1.020 Urine Protein <15 mg/dl Urine Glucose (UA) Neg Urine Ketones Neg Urine Blood Neg Urine Nitrite Neg Urine Bilirubin Neg Urine Urobilinogen 2.0 Ur Leukocyte Esterase Neg Urine WBC (Auto) < 1.0 Urine RBC (Auto) 5.0 Urine Mucus Few - Medical Decision Making Labs noted mild elevation AST ALT, patient denies substance use no fevers or chills there is no abdominal pain at this time patient is tolerating p.o. intake without symptoms. There is no rash noted on exam at this time. No pruritus. Patient now states he is prescribed tramadol by PCP. I advised patient to take [id number] NSAIDs as needed for pain. Follow-up with his PCP in 2 to 3 days. Patient verbalizes agreement and understanding with discharge plan will be DC'd home in stable condition at this time. Critical care attestation.: If time is entered above; I have spent that time in minutes in the direct care of this critically ill patient, excluding procedure time. ED Disposition Clinical Impression: Rash, Body aches Disposition: DC-01 TO HOME OR SELFCARE Is pt being admited?: No Does the pt Need Aspirin: No Condition: Stable Instructions: Acute Rash (ED), Musculoskeletal Pain (ED) Additional Instructions: [facility] , take medications as prescribed , return to ed if symptoms worsen. Prescriptions: Naproxen 500 mg PO BID PRN #30 tablet PRN Reason: pain Forms: Work/School Release Form(ED) Time of Disposition: 22:23
== END 2020-01-29 22:25 | disposition home or self-care (01) ==
LOC: ED 14:33
DX: R21 Rash and other nonspecific skin eruption (principal); L29.8 Other pruritus; R20.2 Paresthesia of skin; M79.18 Myalgia, other site; K21.9 Gastro-esophageal reflux disease without esophagitis; E78.00 Pure hypercholesterolemia, unspecified; F43.11 Post-traumatic stress disorder, acute
CPT/HCPCS: 36415; 71046; 80053; 81001; 82962; 85007; 85025

== ENCOUNTER 2020-05-07 11:56 | Emergency (ER) | payer OTHER ==
[2020-05-07 12:25] VITALS: BP 148/96
[2020-05-07 14:14] LABS: Basophils % (Auto) 0.5 % (0.0-1.8); Eosinophils % (Auto) 0.5 % (0.0-4.3); Hematocrit 43.5 % (35.5-45.6); Hemoglobin 14.2 gm/dl (11.8-15.2); Lymphocytes # (Auto) 2.6 K/mm3 (1.2-5.4); Mean Corpuscular HGB Conc 33 % (32-34); Mean Corpuscular Volume 90 fl (84-94); Monocytes # (Auto) 0.5 K/mm3 (0.0-0.8); Monocytes % (Auto) 9.4 % (0.0-7.3); Platelet Count 231 K/mm3 (140-440); Red Blood Count 4.83 M/mm3 (3.65-5.03); Red Cell Distribution Width 14.3 % (13.2-15.2)
--- NOTE | 2020-05-07 14:18 | Emergency Department Report ---
ED Extremity Problem HPI - General Chief complaint: Extremity Injury, Lower Stated complaint: KNEE/LEG PAIN Time Seen by Provider: 05/07/20 13:10 Source: patient Mode of arrival: Ambulatory Limitations: No Limitations - History of Present Illness Initial comments: Patient is a 50-year-old male presents emergency room complaints of bilateral lower extremity pain that began a few days ago. He states he feels a small amount of swelling to the calfs and behind the knees. He denies any fall or injury. He denies any redness, increased warmth, chest pain, shortness of breath, vomiting, diarrhea, fever, numbness, weakness, pleuritic CP. Patient states that he tested positive for COVID-19 in December but did not have to be admitted to the hospital. He states that he was reading on an online forum about people with COVID-19 getting DVTs and he was concerned that he had a blood clot in the leg. He denies any history of DVT. He states his only past medical history is PTSD. No allergies to medications. - Related Data Previous Rx's Medication Instructions Recorded Last Taken Type Tamsulosin [Flomax] 0.4 mg PO QDAY #5 cap 11/04/19 Unknown Rx traMADoL [Ultram 50 MG tab] 50 mg PO Q6HR PRN #7 tablet 11/04/19 Unknown Rx Albuterol Sulfate [Proventil Hfa] 2 puff IH Q4HR PRN #1 hfa.aer.ad 12/13/19 Unknown Rx traMADoL [Ultram] 50 mg PO Q6HR PRN #7 tablet 12/13/19 Unknown Rx traMADoL [Ultram 50 MG tab] 50 mg PO Q6HR PRN #14 tablet 01/06/20 Unknown Rx Naproxen 500 mg PO BID PRN #30 tablet 01/29/20 Unknown Rx Naproxen [EC-Naprosyn] 500 mg PO BID PRN #14 tablet. 05/07/20 Unknown Rx Allergies Allergy/AdvReac Type Severity Reaction Status Date / Time No Known Allergies Allergy Verified 05/07/20 12:23 ED Review of Systems ROS: Stated complaint: KNEE/LEG PAIN Other details as noted in HPI Comment: All other systems reviewed and negative ED Past Medical Hx - Past Medical History Hx GERD: Yes Hx Kidney Stones: Yes Hx Psychiatric Treatment: Yes (PTSD) Additional medical history: high cholesterol - Surgical History Additional Surgical History: anal fistula - Social History Smoking Status: Former Smoker - Medications Home Medications: Home Medications Medication Instructions Recorded Confirmed Last Taken Type Tamsulosin [Flomax] 0.4 mg PO QDAY #5 cap 11/04/19 Unknown Rx traMADoL [Ultram 50 MG tab] 50 mg PO Q6HR PRN #7 tablet 11/04/19 Unknown Rx Albuterol Sulfate [Proventil Hfa] 2 puff IH Q4HR PRN #1 hfa.aer.ad 12/13/19 Unknown Rx traMADoL [Ultram] 50 mg PO Q6HR PRN #7 tablet 12/13/19 Unknown Rx traMADoL [Ultram 50 MG tab] 50 mg PO Q6HR PRN #14 tablet 01/06/20 Unknown Rx Naproxen 500 mg PO BID PRN #30 tablet 01/29/20 Unknown Rx Naproxen [EC-Naprosyn] 500 mg PO BID PRN #14 tablet.dr 05/07/20 Unknown Rx ED Physical Exam - General Limitations: No Limitations General appearance: alert, in no apparent distress - Head Head exam: Present: atraumatic, normocephalic - Eye Eye exam: Present: normal appearance - ENT ENT exam: Present: mucous membranes moist - Respiratory Respiratory exam: Present: normal lung sounds bilaterally. Absent: respiratory distress, wheezes, rales, rhonchi, stridor, chest wall tenderness, accessory muscle use, decreased breath sounds, prolonged expiratory - Cardiovascular Cardiovascular Exam: Present: regular rate, normal rhythm, normal heart sounds. Absent: systolic murmur, diastolic murmur, rubs, gallop - Extremities Exam Extremities exam: Present: normal inspection, full ROM, normal capillary refill. Absent: tenderness, pedal edema, joint swelling, calf tenderness - Neurological Exam Neurological exam: Present: alert, oriented X3 - Psychiatric Psychiatric exam: Present: normal affect, normal mood - Skin Skin exam: Present: warm, dry, intact ED Course Vital Signs 05/07/20 12:25 Temperature 98.5 F Pulse Rate 72 Respiratory 18 Rate Blood Pressure 148/96 O2 Sat by Pulse 98 Oximetry ED Medical Decision Making - Lab Data Result diagrams: 05/07/20 13:33 05/07/20 13:33 - Radiology Data Radiology results: report reviewed Ordering Physician: GRAHAM BADILLO Date of Service: 05/07/20 Procedure(s): VL venous duplex LE BILAT Accession Number(s): [id number] cc: GRAHAM BADILLO DUPLEX DOPPLER LOWER EXTREMITY VEINS, BILATERAL INDICATION / CLINICAL INFORMATION: BLE pain. TECHNIQUE: Duplex doppler imaging was performed through the veins of both lower extremities using venous compression and other maneuvers. COMPARISON: None available. FINDINGS: RIGHT COMMON FEMORAL VEIN: Negative. RIGHT FEMORAL VEIN: Negative. RIGHT POPLITEAL VEIN: Negative. RIGHT CALF VEINS: Negative. LEFT COMMON FEMORAL VEIN: Negative. LEFT FEMORAL VEIN: Negative. LEFT POPLITEAL VEIN: Negative. LEFT CALF VEINS: Negative. ADDITIONAL FINDINGS: Left popliteal cyst measures 5.0 x 2.1 cm. IMPRESSION: 1. No sonographic evidence for DVT in either lower extremity. Signer Name: Owen Banegas MD Signed: 05/07/2020 4:08 PM Workstation Name: [id number] Transcribed By: Dictated By: OWEN BANEGAS Electronically Authenticated By: OWEN BANEGAS Signed Date/Time: 05/07/201607 DD/ 05 TD/TT: - Medical Decision Making Patient is a 50-year-old male presents emergency room complaints of bilateral lower extremity pain that began a few days ago. He states he feels a small amount of swelling to the calfs and behind the knees. He denies any fall or injury. He denies any redness, increased warmth, chest pain, shortness of breath, vomiting, diarrhea, fever, numbness, weakness, pleuritic CP. Patient states that he tested positive for COVID-19 in December but did not have to be admitted to the hospital. He states that he was reading on an online forum about people with COVID-19 getting DVTs and he was concerned that he had a blood clot in the leg. He denies any history of DVT. He states his only past medical history is PTSD. No allergies to medications. Vitals are stable. On exam no bony tenderness to palpation of the BLE, no edema, no calf tenderness, no skin changes, no erythema, no increased warmth, neurovascularly intact, strong distal pulses, full range of motion of the BLE. labs are stable. doppler US: ADDITIONAL FINDINGS: Left popliteal cyst measures 5.0 x 2.1 cm. IMPRESSION: 1. No sonographic evidence for DVT in either lower extremity. Discussed all findings with patient and answered questions. Given prescription for naproxen. Advised patient Please take medication as prescribed as needed. Follow-up with your primary care doctor. Follow-up with orthopedic doctor. Return to emergency room for any new or worsening symptoms. - Differential Diagnosis DVT, electrolyte disturbance, rhabdo, SUZIE, Bush's cyst, muscle strain Critical care attestation.: If time is entered above; I have spent that time in minutes in the direct care of this critically ill patient, excluding procedure time. ED Disposition Clinical Impression: Bilateral leg pain, Leg cramps Bakers cyst Qualifiers: Laterality: left Qualified Code(s): M71.22 - Synovial cyst of popliteal space [Bush], left knee Disposition: TO HOME OR SELFCARE Is pt being admited?: No Does the pt Need Aspirin: No Condition: Stable Instructions: Leg Cramps, Bush Cyst Additional Instructions: Please take medication as prescribed as needed. Follow-up with your primary care doctor. Follow-up with orthopedic doctor. Return to emergency room for any new or worsening symptoms. Prescriptions: Naproxen [EC-Naprosyn] 500 mg PO BID PRN #14 tablet.dr OSCAR Reason: pain Referrals: PRIMARY CAREMD [Primary Care Provider] - 2-3 Days LOIS ULLOA MD [Staff Physician] - 2-3 Days [facility] [Provider Group] - 2-3 Days Time of Disposition: 16:19 Print Language: FAROESE
[2020-05-07 14:33] LABS: Alanine Aminotransferase 39 units/L (7-56); Albumin 4.1 g/dL (3.9-5); BUN/Creatinine Ratio 9; Blood Urea Nitrogen 12 mg/dL (9-20); Calcium 9.7 mg/dL (8.4-10.2); Hemolysis Index 12
--- NOTE | 2020-05-07 16:12 | Vascular Lab Report ---
DUPLEX DOPPLER LOWER EXTREMITY VEINS, BILATERAL INDICATION / CLINICAL INFORMATION: BLE pain. TECHNIQUE: Duplex doppler imaging was performed through the veins of both lower extremities using venous jennifer geoffrey and other maneuvers. COMPARISON: None available. FINDINGS: RIGHT COMMON FEMORAL VEIN: Negative. RIGHT FEMORAL VEIN: Negative. RIGHT POPLITEAL VEIN: Negative. RIGHT CALF VEINS: Negative. LEFT COMMON FEMORAL VEIN: Negative. LEFT FEMORAL VEIN: Negative. LEFT POPLITEAL VEIN: Negative. LEFT CALF VEINS: Negative. ADDITIONAL FINDINGS: Left popliteal cyst measures 5.0 x 2.1 cm. IMPRESSION: 1. No sonographic evidence for DVT in either lower extremity. Signer Name: Owen Solares MD Signed: 05/07/2020 4:08 PM Workstation Name: [id number]
== END 2020-05-07 16:52 | disposition home or self-care (01) ==
LOC: ED 11:56
DX: M71.22 Synovial cyst of popliteal space [Baker], left knee (principal); K21.9 Gastro-esophageal reflux disease without esophagitis; Z87.891 Personal history of nicotine dependence; Z79.899 Other long term (current) drug therapy
CPT/HCPCS: 36415; 80053; 82550; 83735; 85025; 93970